=== PATIENT | male | born 1995 | race Caucasian/White ===

== ENCOUNTER 2018-03-22 19:04 | Emergency (ER) | payer OTHER ==
[2018-03-22] MEDS ORDERED: Morphine 4 MG/ML VIAL IV ONE (21:22)
--- NOTE | 2018-03-22 21:24 | ED PDOC ---
Upper Extremity Pain/Injury Time Seen by Provider: 03/22/18 19:27 Chief Complaint (Nursing): Upper Extremity Problem/Injury Chief Complaint (Provider): Upper Extremity Problem/Injury History Per: Patient, Roll Former (Romero [id number]) History/Exam Limitations: no limitations Onset/Duration Of Symptoms: Hrs (x1) Additional Complaint(s): 22 years old male with no pmhx presents to ER for evaluation of left elbow pain status post a fall onset 1 hour. Patient reports he jumped and fell, landed on left elbow. He reports a lot of pain. PMD: non provided Past Medical History Reviewed: Historical Data, Nursing Documentation, Vital Signs Vital Signs: Last Vital Signs Temp 97.7 F 03/22/18 19:06 Pulse 95 H 03/22/18 19:06 Resp 16 03/22/18 19:06 BP 130/88 03/22/18 19:06 Pulse Ox 100 03/22/18 19:06 - Medical History PMH: No Chronic Diseases - Surgical History Surgical History: No Surg Hx - Family History Family History: States: Unknown Family Hx - Social History Current smoker - smoking cessation education provided: No Alcohol: None Drugs: Denies - Allergies Allergies/Adverse Reactions: Allergies Allergy/AdvReac Type Severity Reaction Status Date / Time No Known Allergies Allergy Verified 03/22/18 19:06 Review of Systems ROS Statement: Except As Marked, All Systems Reviewed And Found Negative Musculoskeletal: Positive for: Arm Pain (Left elbow) Physical Exam - Reviewed Nursing Documentation Reviewed: Yes Vital Signs Reviewed: Yes - Physical Exam Appears: Positive for: Non-toxic, No Acute Distress Head Exam: Positive for: ATRAUMATIC, NORMOCEPHALIC Skin: Positive for: Normal Color, Warm, Dry Eye Exam: Positive for: Normal appearance, EOMI, PERRL Neck: Positive for: Normal, Painless ROM, Supple Back: Positive for: Normal Inspection. Negative for: L CVA Tenderness, R CVA Tenderness Extremity: Positive for: Normal ROM, Deformity (to left elbow) Neurologic/Psych: Positive for: Alert, Oriented (x3), Other (Neurovascular intact) - ECG O2 Sat by Pulse Oximetry: 100 (RA) Pulse Ox Interpretation: Normal Medical Decision Making Medical Decision Making: Time: 1927 Initial Plan: --Morphine 2 mg IVP --Morphine 6 mg IV Once 2115 CT Left Elbow FINDINGS: BONES: No evidence of fracture. JOINTS: Complete dislocation at humeroradial and humeroulnar joints. Large elbow joint effusion. SOFT TISSUES: The soft tissues are unremarkable. IMPRESSION: 1. Complete dislocation at humeroradial and humeroulnar joints. 2. Large elbow joint effusion. 3. No evidence of fracture. X-ray reviewed and shows dislocation. 2146 Attempted relocation of joint with dilaudid however pt too tense, will need procedural sedation Sedation set up at bedside. pt on security monitor, iv fluids, etco2, o2 NC 2 L on pt. obtained consent with [employer] [facility] # time out performed prior to sedation. NPO status- 22:42 RAD Left elbow FINDINGS: BONES: No acute fracture or aggressive appearing osseous lesion. JOINTS: The joint spaces appear within normal limits. No dislocation. No radiographic evidence of a joint effusion. SOFT TISSUES: The soft tissues are unremarkable. IMPRESSION: No acute osseous abnormality. Scribe Attestation: Documented by Anne Duckworth, acting as a scribe for Marleny Choi MD. Provider Scribe Attestation: All medical record entries made by the Scribe were at my direction and personally dictated by me. I have reviewed the chart and agree that the record accurately reflects my personal performance of the history, physical exam, medical decision making, and the department course for this patient. I have also personally directed, reviewed, and agree with the discharge instructions and disposition. Disposition - Clinical Impression Clinical Impression: Elbow dislocation - Disposition Referrals: Faheem Rojo III, MD [Staff Provider] - Condition: IMPROVED Additional Instructions: follow up with outpatient orthopedist within one week return to the ED with any worsening or concerning symptoms Instructions: Elbow Dislocation Forms: [employer] ([place])
[2018-03-22] MEDS ORDERED: Propofol 10 mg/ml Inj (20 ML) IV ONE (21:51)
[2018-03-22] MEDS ORDERED: Propofol 10 mg/ml Inj (20 ML) ONE (21:57)
[2018-03-22] MEDS ORDERED: Sodium Chloride 0.9% 1,000 ML IV STA (22:10)
[2018-03-22 23:32] VITALS: BP 126/90; PULSE 88; RESP 17; TEMP 98.5; O2SAT 100
--- NOTE | 2018-03-23 08:51 | RAD ---
Date of service: 03/22/2018 PROCEDURE: Radiographs of the left elbow. HISTORY: post relocation of left elbow COMPARISON: Left elbow radiographs 03/22/2018 7:38 a.m.. FINDINGS: BONES: No acute displaced fracture or destructive bony lesion identified. Adequate reduction has been achieved. JOINTS: No dislocation or subluxation. No osteoarthritis. SOFT TISSUES: Soft tissue edema is seen surrounding the elbow throughout subcutaneous fat mildly. OTHER FINDINGS: None IMPRESSION: Adequate reduction. Limited joint effusions are identified. No displaced fracture appreciable.
--- NOTE | 2018-03-23 08:52 | RAD ---
Date of service: 03/22/2018 PROCEDURE: Radiographs of the left elbow. HISTORY: fall COMPARISON: No prior. FINDINGS: BONES: No displaced fracture appreciable or destructive bony lesion. JOINTS: Posterior dislocation of not only the radius but also the ulna with proximal distraction appearing mild. SOFT TISSUES: Normal. JOINT EFFUSION: None. OTHER FINDINGS: None IMPRESSION: Posterior dislocation left radius and ulna without displaced fracture appreciable.
== END 2018-03-22 23:35 | disposition home or self-care (01) ==
LOC: H.ER 19:04
DX: S53.105A Unspecified dislocation of left ulnohumeral joint, initial encounter (principal); W19.XXXA Unspecified fall, initial encounter; Y92.89 Other specified places as the place of occurrence of the external cause
CPT/HCPCS: 73080; 96374; 99284; J2270; J7030